=== PATIENT | male | born 1940 | race Caucasian/White ===

== ENCOUNTER 2017-11-10 14:49 | Inpatient (IN) | payer MEDICARE, OTHER ==
[~2017-11-10] VITALS: Ht 170.2 cm; Wt 77.8 kg
[2017-11-10] MEDS ORDERED: LABETALOL 5MG/ML, 20ML ONE (15:14)
[2017-11-10 15:23] LABS: BASOPHILS # (AUTO) 0.02 x10^3/uL (0-0.1); BASOPHILS % (AUTO) 0 % (0-1); EOSINOPHILS # (AUTO) 0.05 x10^3/uL (0-0.4); EOSINOPHILS % (AUTO) 1 % (1-7); LYMPHOCYTES # (AUTO) 1.93 x10^3/uL (1-3.4); LYMPHOCYTES % (AUTO) 21 % (22-44); MD NO; MEAN CORPUSCULAR HEMOGLOBIN 30.2 pg (27.5-34.5); MEAN CORPUSCULAR HGB CONC 33.6 g/dL (33.2-36.2); MEAN PLATELET VOLUME 8.9 fL (7.4-10.4); MONOCYTES # (AUTO) 0.75 x10^3/uL (0.2-0.8); MONOCYTES % (AUTO) 8 % (2-9); NEUTROPHILS # (AUTO) 6.54 x10^3/uL (1.8-6.8); NEUTROPHILS % (AUTO) 70 % (42-75); PLATELET COUNT 217 x10^3/uL (130-400); RED BLOOD COUNT 4.95 x10^6/uL (4.38-5.82); RED CELL DISTRIBUTION WIDTH 13.4 % (9.4-14.8)
[2017-11-10 15:29] LABS: INTERNATIONAL NORMALIZED RATIO 2.83 (0.93-1.1); PROTHROMBIN TIME 28.6 Seconds (9.6-11.5)
[2017-11-10] MEDS ORDERED: LABETALOL 5MG/ML, 20ML IVPush ONE (15:30)
[2017-11-10 15:31] LABS: ALBUMIN 3.8 g/dL (3.4-5.0); ANION GAP 6 mmol/L (5-15); CALCIUM 9.3 mg/dL (8.5-10.1); CHLORIDE 110 mmol/L (98-107); CREATININE 0.94 mg/dL (0.7-1.3)
[2017-11-10] MEDS ORDERED: ONDANSETRON 2MG/ML, 2ML IVPush PRN (16:00)
[2017-11-10] MEDS ORDERED: ACETAMINOPHEN 325 MG TABLET PO PRN (16:00)
[2017-11-10] MEDS ORDERED: DOCUSATE 100 MG CAPSULE PO PRN (16:00)
[2017-11-10] MEDS ORDERED: POLYETHYLENE GLYCOL 17 GM PACKET PO PRN (16:00)
[2017-11-10] MEDS ORDERED: PHYTONADIONE 10 MG in SODIUM CHLORIDE 0.9% 50 ML IV ONE (16:00)
[2017-11-10 16:19] VITALS: BP 158/68
[2017-11-10] MEDS ORDERED: WARF1TAB PO (16:30)
[2017-11-10] MEDS ORDERED: SIMV20TA PO (16:30)
[2017-11-10] MEDS ORDERED: ENAL5TAB PO (16:30)
[2017-11-10 16:32] VITALS: BP 146/62
[2017-11-10] MEDS: SODIUM CHLORIDE 0.9% 1,000 ML IV SCH ×2 (16:36→19:26)
[2017-11-10 16:52] VITALS: BP 142/66
[2017-11-10 17:09] VITALS: BP 134/56
[2017-11-10 17:12] VITALS: BP 135/57
[2017-11-10 17:25] VITALS: BP 131/61
[2017-11-10 20:10] LABS: INTERNATIONAL NORMALIZED RATIO 1.64 (0.93-1.1); PROTHROMBIN TIME 16.7 Seconds (9.6-11.5)
[2017-11-10] MEDS: FAMOTIDINE 20 MG/2 ML IVPush SCH (20:36)
[2017-11-11] VITALS (11 sets, daily range): BP systolic 120–141; BP diastolic 44–65
[2017-11-11 04:13] LABS: BASOPHILS # (AUTO) 0.01 x10^3/uL (0-0.1); BASOPHILS % (AUTO) 0 % (0-1); EOSINOPHILS # (AUTO) 0.03 x10^3/uL (0-0.4); EOSINOPHILS % (AUTO) 0 % (1-7); LYMPHOCYTES # (AUTO) 1.33 x10^3/uL (1-3.4); LYMPHOCYTES % (AUTO) 13 % (22-44); MD NO; MEAN CORPUSCULAR HEMOGLOBIN 31.1 pg (27.5-34.5); MEAN CORPUSCULAR HGB CONC 34.3 g/dL (33.2-36.2); MEAN CORPUSCULAR VOLUME 90.8 fL (81-97); MEAN PLATELET VOLUME 8.6 fL (7.4-10.4); MONOCYTES # (AUTO) 0.78 x10^3/uL (0.2-0.8); MONOCYTES % (AUTO) 7 % (2-9); NEUTROPHILS # (AUTO) 8.44 x10^3/uL (1.8-6.8); NEUTROPHILS % (AUTO) 80 % (42-75); PLATELET COUNT 203 x10^3/uL (130-400); RED BLOOD COUNT 4.37 x10^6/uL (4.38-5.82); RED CELL DISTRIBUTION WIDTH 13.3 % (9.4-14.8)
[2017-11-11 04:20] LABS: INTERNATIONAL NORMALIZED RATIO 1.28 (0.93-1.1); PROTHROMBIN TIME 13.1 Seconds (9.6-11.5)
[2017-11-11 04:24] LABS: ALANINE AMINOTRANSFERASE 26 U/L (12-78); ALBUMIN 3.6 g/dL (3.4-5.0); ANION GAP 10 mmol/L (5-15); CALCIUM 8.4 mg/dL (8.5-10.1); CHLORIDE 112 mmol/L (98-107); CREATININE 0.86 mg/dL (0.7-1.3)
[2017-11-11 04:26] LABS: ALKALINE PHOSPHATASE 84 U/L (45-117); BILIRUBIN,TOTAL 1.4 mg/dL (0.2-1.0); TOTAL PROTEIN 7.4 g/dL (6.4-8.2)
[2017-11-11] MEDS ORDERED: POTASSIUM CHLORIDE 20 MEQ TAB.ER.PRT PO ONE (07:30)
[2017-11-11] MEDS: LEVETIRACETAM 500 MG in SODIUM CHLORIDE 0.9% 100 ML IV SCH ×2 (08:14→18:46)
[2017-11-11] MEDS: SODIUM CHLORIDE 0.9% 1,000 ML IV SCH ×2 (08:23→18:46)
[2017-11-11 09:21] LABS: INTERNATIONAL NORMALIZED RATIO 1.17 (0.93-1.1)
[2017-11-11] MEDS: ENALAPRILAT 1.25 MG/ML, 2ML IVPush PRN ×2 (09:28→12:18)
[2017-11-11] MEDS: FAMOTIDINE 20 MG/2 ML IVPush SCH ×2 (09:28→20:12)
[2017-11-11] MEDS: PHYTONADIONE 5 MG TABLET PO SCH (09:28)
[2017-11-11] MEDS: SENNA/DOCUSATE TABLET PO SCH (09:29)
[2017-11-11] MEDS ORDERED: ENALAPRIL 20MG TABLET PO SCH (14:42)
[2017-11-11] MEDS: ENALAPRIL 20MG TABLET PO SCH ×2 (15:37→20:12)
[2017-11-12] MEDS: ENALAPRILAT 1.25 MG/ML, 2ML IVPush PRN ×5 (03:19→20:37)
[2017-11-12 04:00] VITALS: BP 142/55
[2017-11-12] MEDS: SODIUM CHLORIDE 0.9% 1,000 ML IV SCH ×2 (05:30→17:44)
[2017-11-12] MEDS: LABETALOL 5MG/ML, 20ML IVPush PRN (06:12)
[2017-11-12 06:50] LABS: INTERNATIONAL NORMALIZED RATIO 1.09 (0.93-1.1); PROTHROMBIN TIME 11.2 Seconds (9.6-11.5)
[2017-11-12 06:53] LABS: ANION GAP 7 mmol/L (5-15); CALCIUM 8.1 mg/dL (8.5-10.1); CHLORIDE 109 mmol/L (98-107); CREATININE 0.88 mg/dL (0.7-1.3)
[2017-11-12] MEDS: LEVETIRACETAM 500 MG in SODIUM CHLORIDE 0.9% 100 ML IV SCH ×2 (09:46→19:42)
[2017-11-12] MEDS: ENALAPRIL 20MG TABLET PO SCH ×2 (09:46→20:36)
[2017-11-12] MEDS: PHYTONADIONE 5 MG TABLET PO SCH (09:46)
[2017-11-12] MEDS: CARVEDILOL 3.125 MG TABLET PO SCH ×2 (09:47→17:45)
[2017-11-12] MEDS: FAMOTIDINE 20 MG/2 ML IVPush SCH ×2 (09:47→20:36)
[2017-11-12] MEDS: SENNA/DOCUSATE TABLET PO SCH (09:47)
[2017-11-12] MEDS ORDERED: GADOBUTROL 7.5 MMOL/7.5 ML PFS ONE (13:35)
[2017-11-13] MEDS: ENALAPRILAT 1.25 MG/ML, 2ML IVPush PRN ×2 (00:42→13:30)
[2017-11-13 04:00] VITALS: BP 126/60
[2017-11-13] MEDS: SODIUM CHLORIDE 0.9% 1,000 ML IV SCH (04:06)
[2017-11-13] MEDS: CARVEDILOL 3.125 MG TABLET PO SCH ×2 (05:43→17:20)
[2017-11-13] MEDS: LEVETIRACETAM 500 MG in SODIUM CHLORIDE 0.9% 100 ML IV SCH ×2 (07:53→20:14)
[2017-11-13] MEDS: FAMOTIDINE 20 MG/2 ML IVPush SCH (07:53)
[2017-11-13] MEDS: SENNA/DOCUSATE TABLET PO SCH (07:53)
[2017-11-13] MEDS: ENALAPRIL 20MG TABLET PO SCH ×2 (08:20→20:15)
[2017-11-13] MEDS ORDERED: hydrALAzine 20 MG/ML, 1ML IV PRN (09:00)
[2017-11-13 13:38] VITALS: BP 146/61
[2017-11-13 14:00] VITALS: BP 164/89
[2017-11-13] MEDS: hydrALAzine 20 MG/ML, 1ML IV PRN (17:34)
[2017-11-13 18:00] VITALS: BP 137/45
[2017-11-13 19:50] VITALS: BP 144/63
[2017-11-14] VITALS (13 sets, daily range): BP systolic 135–170; BP diastolic 64–97
[2017-11-14] MEDS: hydrALAzine 20 MG/ML, 1ML IV PRN ×3 (02:02→22:25)
[2017-11-14] MEDS: CARVEDILOL 3.125 MG TABLET PO SCH ×2 (06:06→18:15)
[2017-11-14] MEDS: LEVETIRACETAM 500 MG in SODIUM CHLORIDE 0.9% 100 ML IV SCH ×2 (07:33→18:16)
[2017-11-14] MEDS: ENALAPRIL 20MG TABLET PO SCH ×2 (08:48→21:25)
[2017-11-14] MEDS: SENNA/DOCUSATE TABLET PO SCH (08:48)
[2017-11-14] MEDS: ENALAPRILAT 1.25 MG/ML, 2ML IVPush PRN ×2 (14:12→23:58)
[2017-11-14] MEDS: AMLODIPINE 5 MG TABLET PO SCH (23:00)
[2017-11-15] VITALS (11 sets, daily range): BP systolic 111–169; BP diastolic 54–79
[2017-11-15] MEDS: hydrALAzine 20 MG/ML, 1ML IV PRN (00:45)
[2017-11-15] MEDS: CARVEDILOL 3.125 MG TABLET PO SCH ×3 (05:53→18:13)
[2017-11-15 06:27] LABS: BASOPHILS % (AUTO) 0 % (0-1); EOSINOPHILS # (AUTO) 0.03 x10^3/uL (0-0.4); EOSINOPHILS % (AUTO) 0 % (1-7); LYMPHOCYTES # (AUTO) 1.01 x10^3/uL (1-3.4); LYMPHOCYTES % (AUTO) 9 % (22-44); MD NO; MEAN CORPUSCULAR HEMOGLOBIN 30.7 pg (27.5-34.5); MEAN CORPUSCULAR HGB CONC 33.6 g/dL (33.2-36.2); MEAN CORPUSCULAR VOLUME 91.3 fL (81-97); MONOCYTES # (AUTO) 0.99 x10^3/uL (0.2-0.8); MONOCYTES % (AUTO) 8 % (2-9); NEUTROPHILS # (AUTO) 9.74 x10^3/uL (1.8-6.8); NEUTROPHILS % (AUTO) 83 % (42-75); PLATELET COUNT 248 x10^3/uL (130-400); RED BLOOD COUNT 4.93 x10^6/uL (4.38-5.82); RED CELL DISTRIBUTION WIDTH 13.5 % (9.4-14.8)
[2017-11-15 06:39] LABS: CHLORIDE 108 mmol/L (98-107)
[2017-11-15 06:50] LABS: ANION GAP 7 mmol/L (5-15); CALCIUM 8.7 mg/dL (8.5-10.1)
[2017-11-15 06:51] LABS: ALANINE AMINOTRANSFERASE 28 U/L (12-78); ALKALINE PHOSPHATASE 84 U/L (45-117); BILIRUBIN,TOTAL 1.7 mg/dL (0.2-1.0); TOTAL PROTEIN 7.4 g/dL (6.4-8.2)
[2017-11-15] MEDS: LEVETIRACETAM 500 MG in SODIUM CHLORIDE 0.9% 100 ML IV SCH ×2 (08:21→20:33)
[2017-11-15] MEDS: SENNA/DOCUSATE TABLET PO SCH (09:00)
[2017-11-15] MEDS: AMLODIPINE 5 MG TABLET PO SCH ×2 (09:54→21:00)
[2017-11-15] MEDS: ENALAPRIL 20MG TABLET PO SCH ×2 (09:54→21:00)
[2017-11-16] VITALS (7 sets, daily range): BP systolic 115–162; BP diastolic 57–76
[2017-11-16] MEDS: CARVEDILOL 3.125 MG TABLET PO SCH ×2 (05:45→18:09)
[2017-11-16 06:35] LABS: BASOPHILS # (AUTO) 0.02 x10^3/uL (0-0.1); BASOPHILS % (AUTO) 0 % (0-1); EOSINOPHILS # (AUTO) 0.18 x10^3/uL (0-0.4); EOSINOPHILS % (AUTO) 2 % (1-7); LYMPHOCYTES # (AUTO) 1.43 x10^3/uL (1-3.4); LYMPHOCYTES % (AUTO) 14 % (22-44); MD NO; MEAN CORPUSCULAR HEMOGLOBIN 30.7 pg (27.5-34.5); MEAN CORPUSCULAR HGB CONC 33.7 g/dL (33.2-36.2); MEAN PLATELET VOLUME 8.9 fL (7.4-10.4); MONOCYTES % (AUTO) 13 % (2-9); NEUTROPHILS # (AUTO) 7.23 x10^3/uL (1.8-6.8); NEUTROPHILS % (AUTO) 71 % (42-75); PLATELET COUNT 239 x10^3/uL (130-400); RED BLOOD COUNT 4.68 x10^6/uL (4.38-5.82); RED CELL DISTRIBUTION WIDTH 13.2 % (9.4-14.8)
[2017-11-16 06:40] LABS: ALBUMIN 2.9 g/dL (3.4-5.0); ANION GAP 5 mmol/L (5-15); CALCIUM 8.4 mg/dL (8.5-10.1); CHLORIDE 108 mmol/L (98-107)
[2017-11-16 06:46] LABS: ALANINE AMINOTRANSFERASE 22 U/L (12-78); ALKALINE PHOSPHATASE 81 U/L (45-117); BILIRUBIN,TOTAL 1.1 mg/dL (0.2-1.0); CREATININE 0.93 mg/dL (0.7-1.3); TOTAL PROTEIN 6.6 g/dL (6.4-8.2)
[2017-11-16] MEDS: SENNA/DOCUSATE TABLET PO SCH (09:13)
[2017-11-16] MEDS: AMLODIPINE 5 MG TABLET PO SCH ×2 (09:13→21:01)
[2017-11-16] MEDS: ENALAPRIL 20MG TABLET PO SCH ×2 (09:14→21:01)
[2017-11-16] MEDS: LEVETIRACETAM 500 MG in SODIUM CHLORIDE 0.9% 100 ML IV SCH ×2 (10:18→21:01)
[2017-11-16] MEDS: hydrALAzine 20 MG/ML, 1ML IV PRN (23:36)
[2017-11-17] VITALS (7 sets, daily range): BP systolic 126–185; BP diastolic 70–90
[2017-11-17] MEDS ORDERED: LEVETIRACETAM 500 MG TABLET PO SCH ×2 (07:30→21:00)
[2017-11-17] MEDS: AMLODIPINE 5 MG TABLET PO SCH ×2 (08:46→20:33)
[2017-11-17] MEDS: ENALAPRIL 20MG TABLET PO SCH ×2 (08:47→20:34)
[2017-11-17] MEDS: SENNA/DOCUSATE TABLET PO SCH (08:54)
[2017-11-17] MEDS ORDERED: ENAL5TAB PO (20:02)
[2017-11-17] MEDS ORDERED: HYDR-3341 PO (20:02)
[2017-11-17] MEDS ORDERED: AMLO5TAB2 PO (20:02)
[2017-11-17] MEDS: LEVETIRACETAM 500 MG TABLET PO SCH (20:33)
[2017-11-17] MEDS: hydrALAzine 20 MG/ML, 1ML IV PRN (22:02)
[2017-11-17] MEDS: LABETALOL 5MG/ML, 20ML IVPush PRN (23:20)
[2017-11-18 04:49] VITALS: BP 168/72
[2017-11-18] MEDS: hydrALAzine 20 MG/ML, 1ML IV PRN ×2 (04:58→23:18)
[2017-11-18 05:19] LABS: ANION GAP 6 mmol/L (5-15); CHLORIDE 105 mmol/L (98-107)
[2017-11-18 05:24] LABS: CALCIUM 8.9 mg/dL (8.5-10.1); CHOL/HDL RATIO 4.8; CHOLESTEROL, TOTAL 155 mg/dL (140-239); CREATININE 0.86 mg/dL (0.7-1.3); HDL CHOL % 21 % (26-37); HDL CHOLESTEROL (DIRECT) 32 mg/dL (40-60); LDL CHOLESTEROL,CALCULATED 99 mg/dL (54-169); LDL/HDL RATIO 3.1 (0.5-3.0); TRIGLYCERIDES 118 mg/dL (50-200); VLDL CHOLESTEROL 24 mg/dL (0-25)
[2017-11-18 05:36] LABS: MEAN CORPUSCULAR HGB CONC 33.8 g/dL (33.2-36.2); MEAN CORPUSCULAR VOLUME 91.8 fL (81-97); MEAN PLATELET VOLUME 9.1 fL (7.4-10.4); PLATELET COUNT 270 x10^3/uL (130-400); RED CELL DISTRIBUTION WIDTH 13.5 % (9.4-14.8)
[2017-11-18 06:08] VITALS: BP 139/77
[2017-11-18 06:33] LABS: BASOPHILS # (AUTO) 0.04 x10^3/uL (0-0.1); BASOPHILS % (AUTO) 0 % (0-1); EOSINOPHILS # (AUTO) 0.09 x10^3/uL (0-0.4); EOSINOPHILS % (AUTO) 1 % (1-7); LYMPHOCYTES % (AUTO) 10 % (22-44); MD SCAN; MONOCYTES # (AUTO) 1.61 x10^3/uL (0.2-0.8); MONOCYTES % (AUTO) 11 % (2-9); NEUTROPHILS # (AUTO) 11.27 x10^3/uL (1.8-6.8); NEUTROPHILS % (AUTO) 78 % (42-75)
[2017-11-18 06:35] VITALS: BP 149/67
[2017-11-18] MEDS: SENNA/DOCUSATE TABLET PO SCH (08:28)
[2017-11-18] MEDS: LEVETIRACETAM 500 MG TABLET PO SCH ×2 (08:43→21:08)
[2017-11-18] MEDS: AMLODIPINE 5 MG TABLET PO SCH ×2 (08:43→21:08)
[2017-11-18] MEDS: ENALAPRIL 20MG TABLET PO SCH ×2 (08:43→21:05)
[2017-11-18 12:15] VITALS: BP 128/60
[2017-11-18 20:13] VITALS: BP 160/66
[2017-11-18] MEDS ORDERED: SIMVASTATIN 20 MG TABLET PO SCH (21:00)
[2017-11-18 22:05] VITALS: BP 153/72
[2017-11-19 00:24] VITALS: BP 137/64
[2017-11-19 03:20] VITALS: BP 149/68
[2017-11-19] MEDS: hydrALAzine 20 MG/ML, 1ML IV PRN ×2 (03:41→05:54)
[2017-11-19 04:45] VITALS: BP 149/67
[2017-11-19] MEDS: ENALAPRILAT 1.25 MG/ML, 2ML IVPush PRN (04:56)
[2017-11-19 05:48] VITALS: BP 152/63
[2017-11-19 06:00] LABS: MEAN CORPUSCULAR HEMOGLOBIN 30.5 pg (27.5-34.5); MEAN CORPUSCULAR HGB CONC 33.3 g/dL (33.2-36.2); MEAN CORPUSCULAR VOLUME 91.5 fL (81-97); MEAN PLATELET VOLUME 8.6 fL (7.4-10.4); PLATELET COUNT 272 x10^3/uL (130-400); RED BLOOD COUNT 4.88 x10^6/uL (4.38-5.82); RED CELL DISTRIBUTION WIDTH 13.5 % (9.4-14.8)
[2017-11-19 07:25] VITALS: BP 124/61
[2017-11-19 07:48] LABS: BASOPHILS # (AUTO) 0.07 x10^3/uL (0-0.1); BASOPHILS % (AUTO) 0 % (0-1); EOSINOPHILS # (AUTO) 0.08 x10^3/uL (0-0.4); EOSINOPHILS % (AUTO) 1 % (1-7); LYMPHOCYTES # (AUTO) 1.78 x10^3/uL (1-3.4); LYMPHOCYTES % (AUTO) 10 % (22-44); MD SCAN; MONOCYTES # (AUTO) 2.16 x10^3/uL (0.2-0.8); MONOCYTES % (AUTO) 12 % (2-9); NEUTROPHILS # (AUTO) 13.89 x10^3/uL (1.8-6.8); NEUTROPHILS % (AUTO) 77 % (42-75)
[2017-11-19] MEDS: AMLODIPINE 5 MG TABLET PO SCH (07:58)
[2017-11-19] MEDS: ENALAPRIL 20MG TABLET PO SCH (07:58)
[2017-11-19] MEDS: SENNA/DOCUSATE TABLET PO SCH (07:58)
[2017-11-19 13:07] VITALS: BP 141/62
== END 2017-11-19 13:44 | DRG 65 ==
LOC: ED 15:30 → EDIP 16:00 → CCU 17:45 → 4WST 11-13 11:45
PROVIDERS: ADMIT Internal Medicine; ATTEND Family Medicine
PROC: 30233K1 Transfusion of Nonautologous Frozen Plasma into Peripheral Vein, Percutaneous Approach (ICD-10-PCS; principal; 2017-11-10)
DX: I61.0 Nontraumatic intracerebral hemorrhage in hemisphere, subcortical (principal); G81.91 Hemiplegia, unspecified affecting right dominant side; I42.9 Cardiomyopathy, unspecified; K57.92 Diverticulitis of intestine, part unspecified, without perforation or abscess without bleeding; I48.91 Unspecified atrial fibrillation; E78.5 Hyperlipidemia, unspecified; M54.5 Low back pain; I10 Essential (primary) hypertension; Z51.5 Encounter for palliative care; Z90.49 Acquired absence of other specified parts of digestive tract; Z79.01 Long term (current) use of anticoagulants; Z88.6 Allergy status to analgesic agent; Z87.891 Personal history of nicotine dependence; Z86.73 Personal history of transient ischemic attack (TIA), and cerebral infarction without residual deficits; Z80.52 Family history of malignant neoplasm of bladder; Z81.8 Family history of other mental and behavioral disorders
CPT/HCPCS: 36415; 70450; 70553; 71045; 80048; 80053; 80061; 82040; 83735; 85025; 85610; 85730; 86850; 86900; 87081; 96365; 96366; 96368; 96375; A9585; J1953; J3430; 92523-GN; J0360; J7030; J7050; P9017; S0028

== ENCOUNTER → 2017-12-21 | Outpatient (CLI) | payer OTHER ==
[~2017-12-21] MED LIST: AMLO5TAB2 PO; ENAL5TAB PO; GADOBUTROL 7.5 MMOL/7.5 ML PFS ONE; HYDR-3341 PO; SIMV20TA PO; WARF1TAB PO
== END | disposition home or self-care (01) ==
LOC: CFH 12:39
PROVIDERS: ATTEND Registered Nurse
DX: I62.9 Nontraumatic intracranial hemorrhage, unspecified (principal)
CPT/HCPCS: 70553; A9585

== ENCOUNTER 2018-01-11 11:38 | Inpatient (IN) | payer MEDICARE, OTHER ==
[~2018-01-11] VITALS: Ht 170.2 cm; Wt 72.7 kg
[~2018-01-11 11:38] MED LIST changes: -GADOBUTROL 7.5 MMOL/7.5 ML PFS ONE
[2018-01-11] MEDS ORDERED: PLEASE ENTER HEIGHT AND WEIGHT MC SCH (12:00)
[2018-01-11] MEDS ORDERED: SODIUM CHLORIDE FLUSH 10ML SYR IVF ONE (12:00)
[2018-01-11 12:05] LABS: BASOPHILS # (AUTO) 0.03 x10^3/uL (0-0.1); BASOPHILS % (AUTO) 0 % (0-1); EOSINOPHILS # (AUTO) 0.06 x10^3/uL (0-0.4); EOSINOPHILS % (AUTO) 1 % (1-7); LYMPHOCYTES # (AUTO) 4.15 x10^3/uL (1-3.4); LYMPHOCYTES % (AUTO) 33 % (22-44); MD NO; MEAN CORPUSCULAR HEMOGLOBIN 30.3 pg (27.5-34.5); MEAN CORPUSCULAR HGB CONC 33.6 g/dL (33.2-36.2); MEAN CORPUSCULAR VOLUME 90.2 fL (81-97); MEAN PLATELET VOLUME 8.8 fL (7.4-10.4); MONOCYTES # (AUTO) 1.26 x10^3/uL (0.2-0.8); MONOCYTES % (AUTO) 10 % (2-9); NEUTROPHILS # (AUTO) 7.21 x10^3/uL (1.8-6.8); NEUTROPHILS % (AUTO) 57 % (42-75); PLATELET COUNT 329 x10^3/uL (130-400); RED BLOOD COUNT 4.33 x10^6/uL (4.38-5.82); RED CELL DISTRIBUTION WIDTH 13.5 % (9.4-14.8)
[2018-01-11 12:14] LABS: INTERNATIONAL NORMALIZED RATIO 3.21 (0.93-1.1); PROTHROMBIN TIME 32.3 Seconds (9.6-11.5)
[2018-01-11 12:42] LABS: ALANINE AMINOTRANSFERASE 35 U/L (12-78); ALBUMIN 3.5 g/dL (3.4-5.0); ALKALINE PHOSPHATASE 79 U/L (45-117); ANION GAP 6 mmol/L (5-15); BILIRUBIN,TOTAL 0.7 mg/dL (0.2-1.0); CALCIUM 8.8 mg/dL (8.5-10.1); CHLORIDE 106 mmol/L (98-107); CREATININE 1.41 mg/dL (0.7-1.3); TOTAL PROTEIN 7.4 g/dL (6.4-8.2); TROPONIN I < 0.015 ng/mL (0.000-0.045)
[2018-01-11] MEDS ORDERED: HYDR-3240 PO (13:18)
[2018-01-11] MEDS ORDERED: FLUO20CA8 PO (13:18)
[2018-01-11] MEDS ORDERED: HYDR-3342 PO (13:19)
[2018-01-11] MEDS ORDERED: WARF2.5T73 PO (13:20)
[2018-01-11] MEDS ORDERED: WARF-36 PO (13:20)
[2018-01-11] MEDS ORDERED: BACL20TA PO (13:21)
[2018-01-11] MEDS ORDERED: HYDR12.53 PO (13:21)
[2018-01-11] MEDS ORDERED: SODIUM CHLORIDE 0.9% 1,000 ML IV SCH (14:05)
[2018-01-11] MEDS ORDERED: ONDANSETRON 2MG/ML, 2ML IVPush PRN (14:30)
[2018-01-11] MEDS ORDERED: POLYETHYLENE GLYCOL 17 GM PACKET PO PRN (14:30)
[2018-01-11] MEDS ORDERED: ONDANSETRON ODT 4 MG PO PRN (14:30)
[2018-01-11] MEDS ORDERED: LABETALOL 5MG/ML, 20ML IVPush PRN (14:30)
[2018-01-11 14:55] VITALS: BP 140/70
[2018-01-11 15:48] LABS: CHOL/HDL RATIO 3.2; FREE T4 (FREE THYROXINE) 1.01 ng/dL (0.76-1.46); LDL/HDL RATIO 1.5 (0.5-3.0)
[2018-01-11 15:58] LABS: HEMOGLOBIN A1C 5.4 % (4.2-6.3)
[2018-01-11] MEDS: TAMSULOSIN 0.4 MG CAP.ER.24H PO SCH (17:30)
[2018-01-11 18:41] VITALS: BP 137/69
[2018-01-11] MEDS ORDERED: AMLODIPINE 5 MG TABLET PO SCH (21:00)
[2018-01-11] MEDS ORDERED: ENALAPRIL 20MG TABLET PO SCH (21:00)
[2018-01-11] MEDS: SIMVASTATIN 20 MG TABLET PO SCH (21:37)
[2018-01-11] MEDS: BACLOFEN 10 MG TABLET PO SCH (21:37)
[2018-01-12 05:11] VITALS: BP 160/72
[2018-01-12 05:45] LABS: ALBUMIN 3.4 g/dL (3.4-5.0); ANION GAP 7 mmol/L (5-15); CALCIUM 9.3 mg/dL (8.5-10.1); CHLORIDE 104 mmol/L (98-107)
[2018-01-12 05:46] LABS: INTERNATIONAL NORMALIZED RATIO 2.63 (0.93-1.1); PROTHROMBIN TIME 26.8 Seconds (9.6-11.5)
[2018-01-12 05:49] LABS: ALANINE AMINOTRANSFERASE 32 U/L (12-78); ALKALINE PHOSPHATASE 75 U/L (45-117); BILIRUBIN,TOTAL 0.8 mg/dL (0.2-1.0); CREATININE 1.14 mg/dL (0.7-1.3); TOTAL PROTEIN 7.3 g/dL (6.4-8.2)
[2018-01-12 06:05] LABS: BASOPHILS # (AUTO) 0.01 x10^3/uL (0-0.1); BASOPHILS % (AUTO) 0 % (0-1); EOSINOPHILS # (AUTO) 0.05 x10^3/uL (0-0.4); EOSINOPHILS % (AUTO) 1 % (1-7); LYMPHOCYTES # (AUTO) 2.06 x10^3/uL (1-3.4); LYMPHOCYTES % (AUTO) 22 % (22-44); MD NO; MEAN CORPUSCULAR HGB CONC 34.4 g/dL (33.2-36.2); MEAN CORPUSCULAR VOLUME 90.1 fL (81-97); MEAN PLATELET VOLUME 8.7 fL (7.4-10.4); MONOCYTES # (AUTO) 0.73 x10^3/uL (0.2-0.8); MONOCYTES % (AUTO) 8 % (2-9); NEUTROPHILS # (AUTO) 6.47 x10^3/uL (1.8-6.8); NEUTROPHILS % (AUTO) 69 % (42-75); PLATELET COUNT 264 x10^3/uL (130-400); RED CELL DISTRIBUTION WIDTH 13.4 % (9.4-14.8)
[2018-01-12] MEDS: ENALAPRIL 20MG TABLET PO SCH ×3 (06:45→21:56)
[2018-01-12] MEDS: AMLODIPINE 5 MG TABLET PO SCH ×3 (06:45→21:56)
[2018-01-12] MEDS: HYDROCHLOROTHIAZIDE 25 MG TABLET PO SCH ×2 (06:46→09:00)
[2018-01-12] MEDS: SENNA/DOCUSATE TABLET PO SCH (09:00)
[2018-01-12] MEDS: TAMSULOSIN 0.4 MG CAP.ER.24H PO SCH (09:00)
[2018-01-12] MEDS ORDERED: HYDROCHLOROTHIAZIDE 12.5 MG CAPSULE PO SCH (09:00)
[2018-01-12 09:21] VITALS: BP 145/71
[2018-01-12] MEDS: BACLOFEN 10 MG TABLET PO SCH ×3 (09:30→21:55)
[2018-01-12] MEDS: FLUOXETINE HCL 20 MG CAPSULE PO SCH (09:30)
[2018-01-12 12:55] VITALS: BP 139/75
[2018-01-12] MEDS ORDERED: WARFARIN 5 MG TABLET PO-COUM ONE (18:00)
[2018-01-12 18:25] VITALS: BP 113/56
[2018-01-12] MEDS: LEVETIRACETAM 500 MG TABLET PO SCH (18:29)
[2018-01-12] MEDS: SIMVASTATIN 20 MG TABLET PO SCH (21:55)
[2018-01-13 01:37] VITALS: BP 110/63
[2018-01-13 05:43] LABS: INTERNATIONAL NORMALIZED RATIO 1.91 (0.93-1.1); PROTHROMBIN TIME 19.4 Seconds (9.6-11.5)
[2018-01-13 05:44] LABS: BASOPHILS % (AUTO) 0 % (0-1); EOSINOPHILS # (AUTO) 0.07 x10^3/uL (0-0.4); EOSINOPHILS % (AUTO) 1 % (1-7); LYMPHOCYTES % (AUTO) 26 % (22-44); MD NO; MEAN CORPUSCULAR HEMOGLOBIN 30.6 pg (27.5-34.5); MEAN CORPUSCULAR HGB CONC 34.2 g/dL (33.2-36.2); MEAN CORPUSCULAR VOLUME 89.4 fL (81-97); MEAN PLATELET VOLUME 8.6 fL (7.4-10.4); MONOCYTES # (AUTO) 0.75 x10^3/uL (0.2-0.8); MONOCYTES % (AUTO) 10 % (2-9); NEUTROPHILS # (AUTO) 4.88 x10^3/uL (1.8-6.8); NEUTROPHILS % (AUTO) 63 % (42-75); PLATELET COUNT 259 x10^3/uL (130-400); RED BLOOD COUNT 4.13 x10^6/uL (4.38-5.82); RED CELL DISTRIBUTION WIDTH 13.6 % (9.4-14.8)
[2018-01-13 05:47] LABS: ALBUMIN 3.3 g/dL (3.4-5.0); ANION GAP 5 mmol/L (5-15); CHLORIDE 102 mmol/L (98-107); CREATININE 1.16 mg/dL (0.7-1.3)
[2018-01-13 08:06] VITALS: BP 110/68
[2018-01-13] MEDS: SENNA/DOCUSATE TABLET PO SCH (08:17)
[2018-01-13] MEDS: TAMSULOSIN 0.4 MG CAP.ER.24H PO SCH (08:18)
[2018-01-13] MEDS: AMLODIPINE 5 MG TABLET PO SCH (08:19)
[2018-01-13] MEDS: FLUOXETINE HCL 20 MG CAPSULE PO SCH (08:19)
[2018-01-13] MEDS: BACLOFEN 10 MG TABLET PO SCH (08:19)
[2018-01-13] MEDS: ENALAPRIL 20MG TABLET PO SCH (08:20)
[2018-01-13] MEDS: HYDROCHLOROTHIAZIDE 25 MG TABLET PO SCH (08:21)
[2018-01-13] MEDS: LEVETIRACETAM 500 MG TABLET PO SCH (08:21)
[2018-01-13] MEDS ORDERED: LEVE500T53 PO (13:43)
[2018-01-13 13:58] VITALS: BP 130/66
[2018-01-13] MEDS ORDERED: WARFARIN 3 MG TABLET PO-COUM ONE (18:00)
== END 2018-01-13 16:28 | disposition home or self-care (01) | DRG 100 ==
LOC: ED 13:14 → EDIP 13:15 → ED 13:26 → 4WST 14:44
PROVIDERS: ADMIT Family Medicine; ATTEND Family Medicine
DX: G40.209 Localization-related (focal) (partial) symptomatic epilepsy and epileptic syndromes with complex partial seizures, not intractable, without status epilepticus (principal); G93.40 Encephalopathy, unspecified; D68.59 Other primary thrombophilia; G81.11 Spastic hemiplegia affecting right dominant side; I48.2 Chronic atrial fibrillation; G45.9 Transient cerebral ischemic attack, unspecified; G46.0 Middle cerebral artery syndrome; E78.5 Hyperlipidemia, unspecified; I10 Essential (primary) hypertension; Z79.01 Long term (current) use of anticoagulants; Z88.6 Allergy status to analgesic agent; Z88.8 Allergy status to other drugs, medicaments and biological substances; Z80.42 Family history of malignant neoplasm of prostate; Z80.52 Family history of malignant neoplasm of bladder; Z85.828 Personal history of other malignant neoplasm of skin; Z87.891 Personal history of nicotine dependence; Z90.49 Acquired absence of other specified parts of digestive tract
CPT/HCPCS: 36415; 70450; 70551; 71045; 80047; 80048; 80053; 80061; 82040; 83036; 83735; 84100; 84439; 84484; 85025; 85610; 85730; 93005; 93306; 93880; 95819; 99285

== ENCOUNTER 2019-03-18 12:18 | Outpatient (CLI) | payer OTHER ==
[~2019-03-18 12:18] MED LIST changes: +AMLO-150 PO; -AMLO5TAB2 PO; +BACL20TA PO; +FLUO20CA8 PO; +HYDR-3240 PO; +HYDR-3342 PO; +HYDR12.517 PO; +LEVE500T53 PO; +REGADENOSON 0.4 MG/5 ML SYRINGE ONE; +WARF-36 PO; +WARF2.5T32 PO
== END 2019-03-18 23:59 | disposition home or self-care (01) ==
LOC: CFH 12:18
PROVIDERS: ATTEND Surgery
DX: Z01.818 Encounter for other preprocedural examination (principal); I21.29 ST elevation (STEMI) myocardial infarction involving other sites; I48.91 Unspecified atrial fibrillation
CPT/HCPCS: 78452; 93017; A9502; J2785

== ENCOUNTER → 2019-03-19 | Outpatient (CLI) | payer OTHER ==
[~2019-03-19] MED LIST changes: -REGADENOSON 0.4 MG/5 ML SYRINGE ONE
== END | disposition home or self-care (01) ==
LOC: CVU 10:33
PROVIDERS: ATTEND Surgery
DX: Z01.818 Encounter for other preprocedural examination (principal); K40.90 Unilateral inguinal hernia, without obstruction or gangrene, not specified as recurrent; I08.8 Other rheumatic multiple valve diseases; I10 Essential (primary) hypertension; I48.91 Unspecified atrial fibrillation; Z86.73 Personal history of transient ischemic attack (TIA), and cerebral infarction without residual deficits; Z87.891 Personal history of nicotine dependence
CPT/HCPCS: 93306